=== PATIENT | male | born 1950 | race Caucasian/White ===

== ENCOUNTER 2017-02-15 08:12 | Emergency (ER) | payer MEDICARE, OTHER ==
[~2017-02-15] VITALS: Ht 193 cm; Wt 90.4 kg
[2017-02-15] MEDS ORDERED: GABA-531 PO (08:27)
[2017-02-15] MEDS ORDERED: ATEN50TA PO (08:27)
[2017-02-15] MEDS ORDERED: SODIUM CHLORIDE 0.9% 1,000 ML IV ONE (08:34)
[2017-02-15] MEDS ORDERED: MORPHINE SULFATE 4 MG/ML SYRINGE IVP ONE (08:45)
[2017-02-15] MEDS ORDERED: ONDANSETRON HCL 4 MG/2 ML VIAL IVP ONE (08:45)
[2017-02-15] MEDS ORDERED: HydrALAZINE HCL 20 MG/ML VIAL IVP ONE (08:45)
[2017-02-15 09:02] LABS: BASOPHILS % (AUTO) 0.3 % (0.0-2.0); EOSINOPHILS % (AUTO) 0 % (1.0-6.0); HEMATOCRIT 41.2 % (41-53); HEMOGLOBIN 14.4 g/dL (13.5-17.5); LYMPHOCYTES # (AUTO) 0.9 K/uL (1.0-4.8); LYMPHOCYTES % (AUTO) 25.4 % (22.0-44.0); MEAN CORPUSCULAR HEMOGLOBIN 31.1 pg (26.0-34.0); MEAN CORPUSCULAR VOLUME 89 fL (80-100); MONOCYTES # (AUTO) 0.3 K/uL (0.1-1.0); MONOCYTES % (AUTO) 10.4 % (2.0-9.0); NEUTROPHILS # (AUTO) 2.2 K/uL (1.8-7.7); NEUTROPHILS % (AUTO) 63.9 % (40.0-70.0); PLATELET COUNT (AUTO) 114 K/uL (150-450); RED BLOOD CELL COUNT(AUTO) 4.64 MIL/uL (4.50-5.90); RED CELL DISTRIBUTION WIDTH 14.1 % (11.5-14.5); WHITE BLOOD COUNT (AUTO) 3.4 K/uL (4.5-11.0)
[2017-02-15 09:14] LABS: APPEARANCE,URINE CLEAR (CLEAR); GLUCOSE, URINE (UA) NEGATIVE (NEGATIVE); KETONES,URINE NEGATIVE (NEGATIVE); LEUKOCYTE ESTERASE ,URINE NEGATIVE (NEGATIVE); OCCULT BLOOD,URINE NEGATIVE (NEGATIVE); PROTEIN,URINE NEGATIVE (NEGATIVE)
[2017-02-15 09:15] LABS: ANION GAP 7 mmol/L (8-16); CARBON DIOXIDE 30 mmol/L (22-29); CHLORIDE 104 mmol/L (98-107); CREATININE 1.12 mg/dL (0.60-1.30); GLOMERULAR FILTR. RATE CALC > 60 mL/min (>60); POTASSIUM 3.6 mmol/L (3.5-5.1); SODIUM SERUM 141 mmol/L (136-145); UREA NITROGEN, BLOOD 20 mg/dL (7-18)
[2017-02-15 09:19] LABS: ADD UA MICROSCOPIC NO
[2017-02-15 09:20] LABS: ALANINE AMINOTRANSFERASE 89 U/L (12-78); ALBUMIN 3.8 g/dL (3.4-5.0); ASPARTATE AMINOTRANSFERASE 54 U/L (15-37); BILIRUBIN,TOTAL 0.7 mg/dL (0.1-1.0); TOTAL PROTEIN, SERUM 7.8 g/dL (6.4-8.2)
[2017-02-15] MEDS ORDERED: ATENOLOL 50 MG TABLET PO ONE (11:15)
[2017-02-15 12:20] VITALS: BP 135/87
[2017-02-16] MEDS ORDERED: OMEG-135 PO (17:28)
== END 2017-02-15 13:01 | disposition home or self-care (01) ==
LOC: EMS 08:13
DX: K85.90 Acute pancreatitis without necrosis or infection, unspecified (principal); K80.20 Calculus of gallbladder without cholecystitis without obstruction; I10 Essential (primary) hypertension; F17.210 Nicotine dependence, cigarettes, uncomplicated; Z88.5 Allergy status to narcotic agent
CPT/HCPCS: 36415; 76705; 80053; 81003; 83690; 85025; 96374; 96375; 99285; J0360; J2270; J2405; J7030

== ENCOUNTER 2017-02-16 17:15 | Emergency (ER) | payer MEDICARE, OTHER ==
[~2017-02-16] VITALS: Ht 193 cm; Wt 88.6 kg
[~2017-02-16 17:15] MED LIST: ATEN50TA PO; GABA-531 PO
[2017-02-16] MEDS ORDERED: OMEG-135 PO (17:28)
[2017-02-16 17:51] LABS: APPEARANCE,URINE CLEAR (CLEAR); GLUCOSE, URINE (UA) NEGATIVE (NEGATIVE); KETONES,URINE NEGATIVE (NEGATIVE); LEUKOCYTE ESTERASE ,URINE NEGATIVE (NEGATIVE); OCCULT BLOOD,URINE NEGATIVE (NEGATIVE); PH,URINE 5.5 (5.0-8.0); PROTEIN,URINE TRACE (NEGATIVE)
[2017-02-16 17:56] LABS: ADD UA MICROSCOPIC YES
[2017-02-16 17:57] LABS: RBC,URINE None Seen /HPF (0-2); WBC,URINE None Seen /HPF (0-5)
[2017-02-16 18:46] VITALS: BP 134/107
== END 2017-02-16 18:58 | disposition home or self-care (01) ==
LOC: EMS 17:17
DX: R82.2 Biliuria (principal); R31.9 Hematuria, unspecified; R30.0 Dysuria; I10 Essential (primary) hypertension; F17.210 Nicotine dependence, cigarettes, uncomplicated; Z88.5 Allergy status to narcotic agent
CPT/HCPCS: 99283

== ENCOUNTER 2017-03-24 15:16 | Emergency (ER) | payer MEDICARE, OTHER ==
[~2017-03-24] VITALS: Ht 185.4 cm; Wt 91.8 kg
[~2017-03-24 15:16] MED LIST changes: -ATEN50TA PO; +OMEG-135 PO
[2017-03-24] MEDS ORDERED: ATEN50TA PO (15:33)
[2017-03-24] MEDS ORDERED: OLAN10TA3 PO (15:33)
[2017-03-24] MEDS ORDERED: AMLO-512 PO (15:33)
[2017-03-24 16:29] LABS: BASOPHILS % (AUTO) 0.4 % (0.0-2.0); EOSINOPHILS % (AUTO) 0.1 % (1.0-6.0); HEMOGLOBIN 12.5 g/dL (13.5-17.5); MEAN CORPUSCULAR HEMOGLOBIN 30.3 pg (26.0-34.0); MEAN CORPUSCULAR HGB CONC 34.7 G/dL (31.0-37.0); MEAN CORPUSCULAR VOLUME 87 fL (80-100); MONOCYTES # (AUTO) 0.5 K/uL (0.1-1.0); MONOCYTES % (AUTO) 9.9 % (2.0-9.0); NEUTROPHILS # (AUTO) 3.4 K/uL (1.8-7.7); NEUTROPHILS % (AUTO) 69.6 % (40.0-70.0); PLATELET COUNT (AUTO) 109 K/uL (150-450); RED BLOOD CELL COUNT(AUTO) 4.13 MIL/uL (4.50-5.90); RED CELL DISTRIBUTION WIDTH 13.8 % (11.5-14.5)
[2017-03-24 16:45] LABS: ANION GAP 7 mmol/L (8-16); CALCIUM, TOTAL 8.6 mg/dL (8.8-10.5); CARBON DIOXIDE 27 mmol/L (22-29); CHLORIDE 100 mmol/L (98-107); CREATININE 1.42 mg/dL (0.60-1.30); GLOMERULAR FILTR. RATE CALC 50 mL/min (>60); GLUCOSE,RANDOM 99 mg/dL (70-110); POTASSIUM 4.8 mmol/L (3.5-5.1); SODIUM SERUM 134 mmol/L (136-145); UREA NITROGEN, BLOOD 32 mg/dL (7-18)
[2017-03-24] MEDS ORDERED: SODIUM CHLORIDE 0.9% 1,000 ML IV ONE (16:45)
[2017-03-24 16:51] LABS: ALANINE AMINOTRANSFERASE 80 U/L (12-78); ALBUMIN 3.4 g/dL (3.4-5.0); ALKALINE PHOSPHATASE 100 U/L (46-116); ASPARTATE AMINOTRANSFERASE 60 U/L (15-37); BILIRUBIN,TOTAL 0.7 mg/dL (0.1-1.0); TOTAL PROTEIN, SERUM 7.1 g/dL (6.4-8.2)
[2017-03-24 17:04] VITALS: BP 122/75
== END 2017-03-24 18:08 | disposition home or self-care (01) ==
LOC: EMS 15:20
DX: R42 Dizziness and giddiness (principal); N28.9 Disorder of kidney and ureter, unspecified; I10 Essential (primary) hypertension; F17.210 Nicotine dependence, cigarettes, uncomplicated; Z88.5 Allergy status to narcotic agent
CPT/HCPCS: 36415; 71045; 80053; 84484; 85025; 93005; 96360; 99285; G0480; J7030

== ENCOUNTER 2017-04-10 23:43 | Emergency (ER) | payer MEDICARE, OTHER ==
[~2017-04-10] VITALS: Ht 185.4 cm; Wt 93.2 kg
[~2017-04-10 23:43] MED LIST changes: +AMLO-512 PO; +ATEN50TA PO; +OLAN10TA3 PO; -OMEG-135 PO
[2017-04-11] MEDS ORDERED: LORazepam 2 MG TABLET PO ONE (01:30)
[2017-04-11] MEDS ORDERED: QUEtiapine FUMARATE 100 MG TABLET PO ONE (01:30)
[2017-04-11 01:56] VITALS: BP 155/91
== END 2017-04-11 02:00 | disposition home or self-care (01) ==
LOC: EMS 23:45
DX: F20.9 Schizophrenia, unspecified (principal); I10 Essential (primary) hypertension; Z88.5 Allergy status to narcotic agent; F17.210 Nicotine dependence, cigarettes, uncomplicated
CPT/HCPCS: 99284

== ENCOUNTER 2017-04-12 19:18 | Inpatient (IN) | payer MEDICARE, MEDICAID ==
[~2017-04-12] VITALS: Ht 185.4 cm; Wt 96.6 kg
[2017-04-12] MEDS ORDERED: HALOPERIDOL 5 MG TABLET PO PRN (20:30)
[2017-04-12] MEDS ORDERED: PNEUMOCOCCAL VACCINE POLYVALENT 0.5 ML VIAL [PPSV23] IM ONE (20:45)
[2017-04-12 21:23] VITALS: BP 134/79
[2017-04-12] MEDS: ZOLPIDEM TARTRATE 10 MG TABLET PO PRN (21:41)
[2017-04-12] MEDS ORDERED: ACETAMINOPHEN 325 MG TABLET PO PRN (22:00)
[2017-04-12] MEDS ORDERED: IBUPROFEN 600 MG TABLET PO PRN (22:00)
[2017-04-13 06:36] VITALS: BP 149/98
[2017-04-13 08:05] VITALS: BP 139/85
[2017-04-13 08:22] LABS: BASOPHILS % (AUTO) 0.5 % (0.0-2.0); EOSINOPHILS % (AUTO) 0 % (1.0-6.0); HEMATOCRIT 37.3 % (41-53); HEMOGLOBIN 12.8 g/dL (13.5-17.5); LYMPHOCYTES # (AUTO) 0.8 K/uL (1.0-4.8); LYMPHOCYTES % (AUTO) 25.3 % (22.0-44.0); MEAN CORPUSCULAR HEMOGLOBIN 29.5 pg (26.0-34.0); MEAN CORPUSCULAR HGB CONC 34.4 G/dL (31.0-37.0); MEAN CORPUSCULAR VOLUME 86 fL (80-100); MONOCYTES # (AUTO) 0.4 K/uL (0.1-1.0); MONOCYTES % (AUTO) 11.6 % (2.0-9.0); NEUTROPHILS # (AUTO) 2.1 K/uL (1.8-7.7); NEUTROPHILS % (AUTO) 62.6 % (40.0-70.0); PLATELET COUNT (AUTO) 132 K/uL (150-450); RED BLOOD CELL COUNT(AUTO) 4.34 MIL/uL (4.50-5.90); RED CELL DISTRIBUTION WIDTH 14.4 % (11.5-14.5)
[2017-04-13 08:45] LABS: HEMOGLOBIN A1C 5.5 % (4.5-6.2)
[2017-04-13 08:47] LABS: ALBUMIN 3.6 g/dL (3.4-5.0); BILIRUBIN,TOTAL 0.5 mg/dL (0.1-1.0); CALCIUM, TOTAL 8.7 mg/dL (8.8-10.5); CREATININE 1.26 mg/dL (0.60-1.30); TOTAL PROTEIN, SERUM 7.6 g/dL (6.4-8.2)
[2017-04-13] MEDS: GABAPENTIN 300 MG CAPSULE PO SCH ×2 (08:53→17:27)
[2017-04-13] MEDS: AmLODIPine BESYLATE 10 MG TABLET PO SCH (08:53)
[2017-04-13] MEDS: ATENOLOL 50 MG TABLET PO SCH (08:54)
[2017-04-13 09:59] LABS: FREE T4 (FREE THYROXINE) 1.01 ng/dL (0.76-1.46); THYROID STIMULATING HORMONE 1.49 uIU/mL (0.36-3.74)
[2017-04-13 10:27] VITALS: BP 142/88
[2017-04-13 11:30] VITALS: BP 143/84
[2017-04-13 16:00] VITALS: BP 144/88
[2017-04-13] MEDS: LORazepam 2 MG TABLET PO PRN (17:27)
[2017-04-13] MEDS: ZOLPIDEM TARTRATE 10 MG TABLET PO PRN (21:11)
[2017-04-13] MEDS: OLANZapine 10 MG TABLET PO SCH (21:11)
[2017-04-14 02:54] VITALS: BP 148/93
[2017-04-14 08:12] VITALS: BP 132/71
[2017-04-14] MEDS: GABAPENTIN 300 MG CAPSULE PO SCH ×2 (08:28→16:36)
[2017-04-14] MEDS: ATENOLOL 50 MG TABLET PO SCH (08:28)
[2017-04-14] MEDS: AmLODIPine BESYLATE 10 MG TABLET PO SCH (08:28)
[2017-04-14 08:37] LABS: AMPHET/METH SCREEN,URINE NEGATIVE (NEGATIVE); BARBITURATE SCREEN, URINE NEGATIVE (NEGATIVE); BENZODIAZEPINES SCREEN,URINE NEGATIVE (NEGATIVE); CANNABINOID SCREEN,URINE NEGATIVE (NEGATIVE); COCAINE SCREEN,URINE NEGATIVE (NEGATIVE); METHADONE SCREEN, URINE NEGATIVE (NEGATIVE); OPIATE SCREEN,URINE NEGATIVE (NEGATIVE)
[2017-04-14 08:39] LABS: PHENCYCLIDINE SCREEN,URINE NEGATIVE (NEGATIVE)
[2017-04-14 09:01] LABS: APPEARANCE,URINE CLEAR (CLEAR); BILIRUBIN,URINE NEGATIVE (NEGATIVE); GLUCOSE, URINE (UA) NEGATIVE (NEGATIVE); KETONES,URINE NEGATIVE (NEGATIVE); LEUKOCYTE ESTERASE ,URINE NEGATIVE (NEGATIVE); NITRATE,URINE NEGATIVE (NEGATIVE); OCCULT BLOOD,URINE NEGATIVE (NEGATIVE); PROTEIN,URINE NEGATIVE (NEGATIVE)
[2017-04-14] MEDS: LORazepam 2 MG TABLET PO PRN ×3 (12:35→23:44)
[2017-04-14 16:22] VITALS: BP 154/76
[2017-04-14] MEDS: OLANZapine 10 MG TABLET PO SCH (20:22)
[2017-04-14] MEDS: ZOLPIDEM TARTRATE 10 MG TABLET PO PRN (21:12)
[2017-04-15] VITALS (10 sets, daily range): BP systolic 131–156; BP diastolic 75–97
[2017-04-15] MEDS: GABAPENTIN 300 MG CAPSULE PO SCH ×2 (08:57→17:23)
[2017-04-15] MEDS: ATENOLOL 50 MG TABLET PO SCH (08:57)
[2017-04-15] MEDS: AmLODIPine BESYLATE 10 MG TABLET PO SCH (08:58)
[2017-04-15] MEDS: OLANZapine 10 MG TABLET PO SCH (20:42)
[2017-04-15] MEDS: NYSTATIN 30 GM CREAM TP SCH (21:44)
[2017-04-15] MEDS: MAGNESIUM SULFATE 454 GM BOX TP SCH (21:44)
[2017-04-16] MEDS: ZOLPIDEM TARTRATE 10 MG TABLET PO PRN ×2 (01:19→20:28)
[2017-04-16 01:34] VITALS: BP 138/90
[2017-04-16 08:07] VITALS: BP 154/87
[2017-04-16] MEDS: MAGNESIUM SULFATE 454 GM BOX TP SCH ×2 (08:31→16:57)
[2017-04-16] MEDS: GABAPENTIN 300 MG CAPSULE PO SCH ×2 (08:31→16:57)
[2017-04-16] MEDS: AmLODIPine BESYLATE 10 MG TABLET PO SCH (08:31)
[2017-04-16] MEDS: LORazepam 2 MG TABLET PO PRN (08:31)
[2017-04-16] MEDS: ATENOLOL 50 MG TABLET PO SCH (08:32)
[2017-04-16] MEDS: NYSTATIN 30 GM CREAM TP SCH (08:33)
[2017-04-16 12:45] VITALS: BP_SYST 142; BP_SYST 149; BP_DIAS 72
[2017-04-16 13:00] VITALS: BP 102/82
[2017-04-16 16:00] VITALS: BP 131/62
[2017-04-16] MEDS: OLANZapine 10 MG TABLET PO SCH (20:27)
[2017-04-16] MEDS ORDERED: OXYBUTYNIN CHLORIDE 5 MG TABLET PO SCH (21:00)
[2017-04-17 05:50] VITALS: BP 142/90
[2017-04-17 08:09] VITALS: BP 136/84
[2017-04-17] MEDS: MAGNESIUM SULFATE 454 GM BOX TP SCH (08:17)
[2017-04-17] MEDS: ATENOLOL 50 MG TABLET PO SCH (08:17)
[2017-04-17] MEDS: AmLODIPine BESYLATE 10 MG TABLET PO SCH (08:17)
[2017-04-17] MEDS: GABAPENTIN 300 MG CAPSULE PO SCH (08:17)
[2017-04-17] MEDS: NYSTATIN 30 GM CREAM TP SCH (08:18)
[2017-04-17] MEDS ORDERED: OXYB5 PO (08:54)
== END 2017-04-17 08:45 | disposition home or self-care (01) | DRG 750 ==
LOC: B3A 20:20
PROC: 3E0234Z Introduction of Serum, Toxoid and Vaccine into Muscle, Percutaneous Approach (ICD-10-PCS; principal; 2017-04-12)
DX: F20.0 Paranoid schizophrenia (principal); G62.9 Polyneuropathy, unspecified; I10 Essential (primary) hypertension; B19.20 Unspecified viral hepatitis C without hepatic coma; F31.9 Bipolar disorder, unspecified; F29 Unspecified psychosis not due to a substance or known physiological condition; Z88.5 Allergy status to narcotic agent; Z79.899 Other long term (current) drug therapy; Z23 Encounter for immunization
CPT/HCPCS: 80307; 83036; 84439; 84443; 90471

== ENCOUNTER 2017-04-27 18:34 | Emergency (ER) | payer MEDICARE, MEDICAID ==
[~2017-04-27] VITALS: Ht 182.9 cm; Wt 90.0 kg
[~2017-04-27 18:34] MED LIST changes: +OXYB5 PO
[2017-04-27 20:06] LABS: APPEARANCE,URINE CLEAR (CLEAR); BILIRUBIN,URINE NEGATIVE (NEGATIVE); GLUCOSE, URINE (UA) NEGATIVE (NEGATIVE); KETONES,URINE NEGATIVE (NEGATIVE); LEUKOCYTE ESTERASE ,URINE NEGATIVE (NEGATIVE); NITRATE,URINE NEGATIVE (NEGATIVE); OCCULT BLOOD,URINE NEGATIVE (NEGATIVE); PROTEIN,URINE NEGATIVE (NEGATIVE)
[2017-04-27 20:06] LABS: BASOPHILS % (AUTO) 0.7 % (0.0-2.0); EOSINOPHILS % (AUTO) 0.1 % (1.0-6.0); HEMATOCRIT 35.7 % (41-53); HEMOGLOBIN 12.4 g/dL (13.5-17.5); LYMPHOCYTES % (AUTO) 24.1 % (22.0-44.0); MEAN CORPUSCULAR HEMOGLOBIN 29.6 pg (26.0-34.0); MEAN CORPUSCULAR HGB CONC 34.8 G/dL (31.0-37.0); MEAN CORPUSCULAR VOLUME 85 fL (80-100); MONOCYTES # (AUTO) 0.4 K/uL (0.1-1.0); NEUTROPHILS # (AUTO) 2.6 K/uL (1.8-7.7); NEUTROPHILS % (AUTO) 64.1 % (40.0-70.0); PLATELET COUNT (AUTO) 141 K/uL (150-450); RED CELL DISTRIBUTION WIDTH 14.5 % (11.5-14.5)
[2017-04-27 20:26] LABS: ANION GAP 7 mmol/L (8-16); CALCIUM, TOTAL 9.1 mg/dL (8.8-10.5); CARBON DIOXIDE 29 mmol/L (22-29); CHLORIDE 106 mmol/L (98-107); CREATININE 1.17 mg/dL (0.60-1.30); GLOMERULAR FILTR. RATE CALC > 60 mL/min (>60); GLUCOSE,RANDOM 95 mg/dL (70-110); POTASSIUM 4.1 mmol/L (3.5-5.1); SODIUM SERUM 142 mmol/L (136-145); UREA NITROGEN, BLOOD 19 mg/dL (7-18)
[2017-04-27 20:33] LABS: ALANINE AMINOTRANSFERASE 92 U/L (12-78); ALBUMIN 3.7 g/dL (3.4-5.0); ALKALINE PHOSPHATASE 120 U/L (46-116); ASPARTATE AMINOTRANSFERASE 69 U/L (15-37); BILIRUBIN,TOTAL 0.6 mg/dL (0.1-1.0); TOTAL PROTEIN, SERUM 7.5 g/dL (6.4-8.2)
[2017-04-27 20:39] LABS: BACTERIA,URINE None Seen /HPF (None Seen); RBC,URINE None Seen /HPF (0-2); WBC,URINE None Seen /HPF (0-5)
[2017-04-27 20:40] LABS: SQUAMOUS EPITHELIAL CELL,UR None Seen /LPF (None Seen)
[2017-04-27 21:14] LABS: B-TYPE NATRIURETIC PEPTIDE 15 pg/mL (0-100)
[2017-04-27 21:53] VITALS: BP 150/76
== END 2017-04-27 22:00 | disposition home or self-care (01) ==
LOC: EMS 18:36
DX: M71.561 Other bursitis, not elsewhere classified, right knee (principal); M17.11 Unilateral primary osteoarthritis, right knee; R74.0 Nonspecific elevation of levels of transaminase and lactic acid dehydrogenase [LDH]; L03.115 Cellulitis of right lower limb; F31.9 Bipolar disorder, unspecified; G62.9 Polyneuropathy, unspecified; I10 Essential (primary) hypertension; F17.210 Nicotine dependence, cigarettes, uncomplicated; Z88.5 Allergy status to narcotic agent; W10.1XXA Fall (on)(from) sidewalk curb, initial encounter; Y93.89 Activity, other specified; Y92.89 Other specified places as the place of occurrence of the external cause; Y99.8 Other external cause status
CPT/HCPCS: 93970; 99285

== ENCOUNTER 2017-06-13 12:50 | Inpatient (IN) | payer MEDICARE, MEDICAID ==
[~2017-06-13] VITALS: Ht 185.4 cm; Wt 91.2 kg
[2017-06-13 13:03] VITALS: BP 110/65
[2017-06-13] MEDS ORDERED: ZOLPIDEM TARTRATE 10 MG TABLET PO PRN (13:30)
[2017-06-13] MEDS ORDERED: HALOPERIDOL 5 MG TABLET PO PRN (13:30)
[2017-06-13] MEDS ORDERED: PNEUMOCOCCAL VACCINE POLYVALENT 0.5 ML VIAL [PPSV23] IM ONE (14:00)
[2017-06-13] MEDS ORDERED: TRAZ-144 PO (14:28)
[2017-06-13] MEDS ORDERED: OLAN5TAB2 PO (14:28)
[2017-06-13] MEDS ORDERED: OLAN10TA3 PO (14:28)
[2017-06-13 18:45] VITALS: BP 140/80
[2017-06-13] MEDS: GABAPENTIN 300 MG CAPSULE PO SCH (20:01)
[2017-06-13] MEDS: TraZODone HCL 50 MG TABLET PO SCH (20:02)
[2017-06-13] MEDS: OLANZapine 10 MG TABLET PO SCH (20:02)
[2017-06-13 20:56] VITALS: BP 140/85
[2017-06-13] MEDS: OXYBUTYNIN CHLORIDE 5 MG TABLET PO SCH (21:33)
[2017-06-14 02:29] VITALS: BP 117/60
[2017-06-14 08:31] VITALS: BP 150/81
[2017-06-14 08:53] LABS: BASOPHILS % (AUTO) 0.3 % (0.0-2.0); EOSINOPHILS % (AUTO) 0 % (1.0-6.0); HEMOGLOBIN 13.2 g/dL (13.5-17.5); LYMPHOCYTES # (AUTO) 0.9 K/uL (1.0-4.8); LYMPHOCYTES % (AUTO) 19.9 % (22.0-44.0); MEAN CORPUSCULAR HEMOGLOBIN 29.6 pg (26.0-34.0); MEAN CORPUSCULAR HGB CONC 34.8 G/dL (31.0-37.0); MEAN CORPUSCULAR VOLUME 85 fL (80-100); MONOCYTES # (AUTO) 0.3 K/uL (0.1-1.0); MONOCYTES % (AUTO) 6.9 % (2.0-9.0); NEUTROPHILS # (AUTO) 3.3 K/uL (1.8-7.7); NEUTROPHILS % (AUTO) 72.9 % (40.0-70.0); PLATELET COUNT (AUTO) 130 K/uL (150-450); RED BLOOD CELL COUNT(AUTO) 4.46 MIL/uL (4.50-5.90); RED CELL DISTRIBUTION WIDTH 14.5 % (11.5-14.5)
[2017-06-14] MEDS: ATENOLOL 50 MG TABLET PO SCH (09:12)
[2017-06-14] MEDS: GABAPENTIN 300 MG CAPSULE PO SCH ×2 (09:13→16:49)
[2017-06-14] MEDS: OLANZapine 5 MG TABLET PO SCH (09:13)
[2017-06-14] MEDS: AmLODIPine BESYLATE 10 MG TABLET PO SCH (09:13)
[2017-06-14 09:30] LABS: HEMOGLOBIN A1C 5.4 % (4.5-6.2)
[2017-06-14 09:32] LABS: ALANINE AMINOTRANSFERASE 97 U/L (12-78); ALBUMIN 3.6 g/dL (3.4-5.0); ALKALINE PHOSPHATASE 108 U/L (46-116); ANION GAP 5 mmol/L (8-16); ASPARTATE AMINOTRANSFERASE 75 U/L (15-37); BILIRUBIN,TOTAL 0.6 mg/dL (0.1-1.0); CALCIUM, TOTAL 8.9 mg/dL (8.8-10.5); CARBON DIOXIDE 31 mmol/L (22-29); CHLORIDE 105 mmol/L (98-107); CHOL/HDL RATIO 3.7 (4.2-7.3); CHOLESTEROL 123 mg/dL (131-200); CREATININE 1.06 mg/dL (0.60-1.30); FREE T4 (FREE THYROXINE) 1.08 ng/dL (0.76-1.46); GLOMERULAR FILTR. RATE CALC > 60 mL/min (>60); GLUCOSE,RANDOM 126 mg/dL (70-110); HDL CHOLESTEROL 33 mg/dL (40-60); LDL CHOL (CALC.) 77 mg/dL (0-130); POTASSIUM 4.1 mmol/L (3.5-5.1); SODIUM SERUM 141 mmol/L (136-145); THYROID STIMULATING HORMONE 1.24 uIU/mL (0.36-3.74); TOTAL PROTEIN, SERUM 7.7 g/dL (6.4-8.2); TRIGLYCERIDES 64 mg/dL (15-150); UREA NITROGEN, BLOOD 30 mg/dL (7-18)
[2017-06-14 16:07] VITALS: BP 139/87
[2017-06-14] MEDS: LORazepam 2 MG TABLET PO PRN (16:49)
[2017-06-14] MEDS: TraZODone HCL 50 MG TABLET PO SCH (20:40)
[2017-06-14] MEDS: OLANZapine 10 MG TABLET PO SCH (20:40)
[2017-06-14] MEDS: OXYBUTYNIN CHLORIDE 5 MG TABLET PO SCH (20:40)
[2017-06-15 04:34] VITALS: BP 142/75
[2017-06-15 08:05] VITALS: BP 118/83
[2017-06-15] MEDS: AmLODIPine BESYLATE 10 MG TABLET PO SCH (08:45)
[2017-06-15] MEDS: ATENOLOL 50 MG TABLET PO SCH (08:45)
[2017-06-15] MEDS: OLANZapine 5 MG TABLET PO SCH (08:45)
[2017-06-15] MEDS: GABAPENTIN 300 MG CAPSULE PO SCH ×2 (08:45→16:20)
[2017-06-15 16:05] VITALS: BP 136/85
[2017-06-15] MEDS: LORazepam 2 MG TABLET PO PRN (16:20)
[2017-06-15] MEDS: OXYBUTYNIN CHLORIDE 5 MG TABLET PO SCH (20:38)
[2017-06-15] MEDS: OLANZapine 10 MG TABLET PO SCH (20:38)
[2017-06-15] MEDS: TraZODone HCL 50 MG TABLET PO SCH (20:38)
[2017-06-16 05:43] VITALS: BP 133/86
[2017-06-16] MEDS: ATENOLOL 50 MG TABLET PO SCH (08:15)
[2017-06-16] MEDS: OLANZapine 5 MG TABLET PO SCH (08:15)
[2017-06-16] MEDS: AmLODIPine BESYLATE 10 MG TABLET PO SCH (08:15)
[2017-06-16] MEDS: GABAPENTIN 300 MG CAPSULE PO SCH ×2 (08:16→16:34)
[2017-06-16 08:28] VITALS: BP 154/91
[2017-06-16] MEDS: DIVALPROEX SODIUM 500 MG DR TABLET PO SCH ×2 (09:24→20:37)
[2017-06-16 16:03] VITALS: BP 147/70
[2017-06-16] MEDS: LORazepam 2 MG TABLET PO PRN (16:35)
[2017-06-16] MEDS: TraZODone HCL 50 MG TABLET PO SCH (20:36)
[2017-06-16] MEDS: OXYBUTYNIN CHLORIDE 5 MG TABLET PO SCH (20:36)
[2017-06-16] MEDS: OLANZapine 10 MG TABLET PO SCH (20:37)
[2017-06-17 05:16] VITALS: BP 142/88
[2017-06-17 08:04] VITALS: BP 136/80
[2017-06-17] MEDS: AmLODIPine BESYLATE 10 MG TABLET PO SCH (08:22)
[2017-06-17] MEDS: OLANZapine 5 MG TABLET PO SCH (08:22)
[2017-06-17] MEDS: DIVALPROEX SODIUM 500 MG DR TABLET PO SCH ×2 (08:22→20:38)
[2017-06-17] MEDS: GABAPENTIN 300 MG CAPSULE PO SCH ×2 (08:22→16:13)
[2017-06-17] MEDS: ATENOLOL 50 MG TABLET PO SCH (08:22)
[2017-06-17 16:11] VITALS: BP 115/68
[2017-06-17] MEDS: LORazepam 2 MG TABLET PO PRN (16:13)
[2017-06-17] MEDS: VITAMINS A & D 60 GM OINTMENT TP SCH (16:13)
[2017-06-17] MEDS: OXYBUTYNIN CHLORIDE 5 MG TABLET PO SCH (20:38)
[2017-06-17] MEDS: TraZODone HCL 50 MG TABLET PO SCH (20:38)
[2017-06-17] MEDS: OLANZapine 10 MG TABLET PO SCH (20:38)
[2017-06-18 01:59] VITALS: BP 121/83
[2017-06-18] MEDS: OLANZapine 5 MG TABLET PO SCH (08:16)
[2017-06-18] MEDS: DIVALPROEX SODIUM 500 MG DR TABLET PO SCH ×2 (08:16→20:24)
[2017-06-18] MEDS: AmLODIPine BESYLATE 10 MG TABLET PO SCH (08:16)
[2017-06-18] MEDS: GABAPENTIN 300 MG CAPSULE PO SCH ×2 (08:16→17:06)
[2017-06-18] MEDS: ATENOLOL 50 MG TABLET PO SCH (08:16)
[2017-06-18] MEDS: VITAMINS A & D 60 GM OINTMENT TP SCH ×2 (08:17→17:06)
[2017-06-18 08:23] VITALS: BP 144/90
[2017-06-18 16:12] VITALS: BP 134/89
[2017-06-18] MEDS: LORazepam 2 MG TABLET PO PRN (17:06)
[2017-06-18] MEDS: OXYBUTYNIN CHLORIDE 5 MG TABLET PO SCH (20:24)
[2017-06-18] MEDS: OLANZapine 10 MG TABLET PO SCH (20:24)
[2017-06-18] MEDS: TraZODone HCL 50 MG TABLET PO SCH (20:24)
[2017-06-19 04:38] VITALS: BP 140/93
[2017-06-19 08:12] VITALS: BP 137/91
[2017-06-19] MEDS: OLANZapine 5 MG TABLET PO SCH (08:38)
[2017-06-19] MEDS: DIVALPROEX SODIUM 500 MG DR TABLET PO SCH ×2 (08:38→20:48)
[2017-06-19] MEDS: ATENOLOL 50 MG TABLET PO SCH (08:38)
[2017-06-19] MEDS: AmLODIPine BESYLATE 10 MG TABLET PO SCH (08:38)
[2017-06-19] MEDS: GABAPENTIN 300 MG CAPSULE PO SCH ×2 (08:38→16:52)
[2017-06-19] MEDS: VITAMINS A & D 60 GM OINTMENT TP SCH ×2 (08:39→16:52)
[2017-06-19 16:05] VITALS: BP 124/70
[2017-06-19] MEDS: LORazepam 2 MG TABLET PO PRN (16:53)
[2017-06-19] MEDS: OXYBUTYNIN CHLORIDE 5 MG TABLET PO SCH (20:47)
[2017-06-19] MEDS: OLANZapine 10 MG TABLET PO SCH (20:47)
[2017-06-19] MEDS: TraZODone HCL 50 MG TABLET PO SCH (20:47)
[2017-06-20 05:58] VITALS: BP 130/88
[2017-06-20 08:06] VITALS: BP 143/61
[2017-06-20] MEDS: AmLODIPine BESYLATE 10 MG TABLET PO SCH (08:56)
[2017-06-20] MEDS: ATENOLOL 50 MG TABLET PO SCH (08:56)
[2017-06-20] MEDS: DIVALPROEX SODIUM 500 MG DR TABLET PO SCH ×2 (08:56→20:02)
[2017-06-20] MEDS: GABAPENTIN 300 MG CAPSULE PO SCH ×2 (08:56→16:30)
[2017-06-20] MEDS: OLANZapine 5 MG TABLET PO SCH (08:57)
[2017-06-20] MEDS: VITAMINS A & D 60 GM OINTMENT TP SCH ×2 (08:57→16:30)
[2017-06-20 16:05] VITALS: BP 112/71
[2017-06-20] MEDS: OXYBUTYNIN CHLORIDE 5 MG TABLET PO SCH (20:02)
[2017-06-20] MEDS: TraZODone HCL 50 MG TABLET PO SCH (20:02)
[2017-06-20] MEDS: OLANZapine 10 MG TABLET PO SCH (20:02)
[2017-06-21 04:24] VITALS: BP 136/66
[2017-06-21 08:05] VITALS: BP 141/87
[2017-06-21] MEDS: ATENOLOL 50 MG TABLET PO SCH (08:50)
[2017-06-21] MEDS: GABAPENTIN 300 MG CAPSULE PO SCH ×2 (08:50→16:36)
[2017-06-21] MEDS: AmLODIPine BESYLATE 10 MG TABLET PO SCH (08:50)
[2017-06-21] MEDS: DIVALPROEX SODIUM 500 MG DR TABLET PO SCH ×2 (08:50→20:32)
[2017-06-21] MEDS: OLANZapine 5 MG TABLET PO SCH (08:50)
[2017-06-21] MEDS: VITAMINS A & D 60 GM OINTMENT TP SCH ×2 (08:51→16:36)
[2017-06-21] MEDS ORDERED: DENTURE ADHESIVE 68 GM CREAM DT PRN (14:00)
[2017-06-21 16:05] VITALS: BP 138/86
[2017-06-21] MEDS: LORazepam 2 MG TABLET PO PRN (16:36)
[2017-06-21] MEDS: OXYBUTYNIN CHLORIDE 5 MG TABLET PO SCH (20:32)
[2017-06-21] MEDS: OLANZapine 10 MG TABLET PO SCH (20:32)
[2017-06-21] MEDS: TraZODone HCL 50 MG TABLET PO SCH (20:33)
[2017-06-22 00:28] VITALS: BP 144/88
[2017-06-22 08:04] VITALS: BP 139/77
[2017-06-22] MEDS: GABAPENTIN 300 MG CAPSULE PO SCH ×2 (08:21→16:17)
[2017-06-22] MEDS: AmLODIPine BESYLATE 10 MG TABLET PO SCH (08:21)
[2017-06-22] MEDS: ATENOLOL 50 MG TABLET PO SCH (08:21)
[2017-06-22] MEDS: OLANZapine 5 MG TABLET PO SCH (08:21)
[2017-06-22] MEDS: DIVALPROEX SODIUM 500 MG DR TABLET PO SCH ×2 (08:21→20:02)
[2017-06-22] MEDS: VITAMINS A & D 60 GM OINTMENT TP SCH ×2 (08:22→16:17)
[2017-06-22 16:05] VITALS: BP 138/66
[2017-06-22] MEDS: LORazepam 2 MG TABLET PO PRN (16:17)
[2017-06-22] MEDS: TraZODone HCL 50 MG TABLET PO SCH (20:02)
[2017-06-22] MEDS: OXYBUTYNIN CHLORIDE 5 MG TABLET PO SCH (20:02)
[2017-06-22] MEDS: OLANZapine 10 MG TABLET PO SCH (20:02)
[2017-06-23 01:12] VITALS: BP 135/88
[2017-06-23 08:07] VITALS: BP 141/71
[2017-06-23] MEDS: GABAPENTIN 300 MG CAPSULE PO SCH ×2 (08:24→17:02)
[2017-06-23] MEDS: OLANZapine 5 MG TABLET PO SCH (08:25)
[2017-06-23] MEDS: DIVALPROEX SODIUM 500 MG DR TABLET PO SCH ×2 (08:25→20:26)
[2017-06-23] MEDS: AmLODIPine BESYLATE 10 MG TABLET PO SCH (08:25)
[2017-06-23] MEDS: ATENOLOL 50 MG TABLET PO SCH (08:25)
[2017-06-23] MEDS: LORazepam 2 MG TABLET PO PRN ×2 (08:25→17:02)
[2017-06-23] MEDS: VITAMINS A & D 60 GM OINTMENT TP SCH ×2 (08:42→17:04)
[2017-06-23 16:45] VITALS: BP 144/92
[2017-06-23] MEDS: OLANZapine 10 MG TABLET PO SCH (20:26)
[2017-06-23] MEDS: TraZODone HCL 50 MG TABLET PO SCH (20:26)
[2017-06-23] MEDS: OXYBUTYNIN CHLORIDE 5 MG TABLET PO SCH (20:27)
[2017-06-24 06:00] VITALS: BP 130/78
[2017-06-24] MEDS: DIVALPROEX SODIUM 500 MG DR TABLET PO SCH ×2 (08:12→20:04)
[2017-06-24] MEDS: GABAPENTIN 300 MG CAPSULE PO SCH ×2 (08:12→16:18)
[2017-06-24] MEDS: ATENOLOL 50 MG TABLET PO SCH (08:12)
[2017-06-24] MEDS: AmLODIPine BESYLATE 10 MG TABLET PO SCH (08:13)
[2017-06-24] MEDS: VITAMINS A & D 60 GM OINTMENT TP SCH ×2 (08:13→16:18)
[2017-06-24] MEDS: OLANZapine 5 MG TABLET PO SCH (08:13)
[2017-06-24 08:29] VITALS: BP 147/77
[2017-06-24 16:19] VITALS: BP 132/76
[2017-06-24] MEDS: OLANZapine 10 MG TABLET PO SCH (20:04)
[2017-06-24] MEDS: TraZODone HCL 50 MG TABLET PO SCH (20:04)
[2017-06-24] MEDS: OXYBUTYNIN CHLORIDE 5 MG TABLET PO SCH (20:04)
[2017-06-25 03:09] VITALS: BP 122/80
[2017-06-25 08:12] VITALS: BP 136/86
[2017-06-25] MEDS: AmLODIPine BESYLATE 10 MG TABLET PO SCH (08:21)
[2017-06-25] MEDS: ATENOLOL 50 MG TABLET PO SCH (08:21)
[2017-06-25] MEDS: GABAPENTIN 300 MG CAPSULE PO SCH ×2 (08:21→16:38)
[2017-06-25] MEDS: VITAMINS A & D 60 GM OINTMENT TP SCH ×2 (08:22→16:37)
[2017-06-25] MEDS: OLANZapine 5 MG TABLET PO SCH (08:22)
[2017-06-25] MEDS: DIVALPROEX SODIUM 500 MG DR TABLET PO SCH ×2 (08:22→21:04)
[2017-06-25] MEDS: BACITRACIN 28.4 GM OINTMENT TP SCH ×2 (10:15→16:37)
[2017-06-25] MEDS ORDERED: IBUPROFEN 600 MG TABLET PO PRN (10:30)
[2017-06-25] MEDS ORDERED: OLAN10TA20 PO (10:38)
[2017-06-25] MEDS ORDERED: DIVA500T35 PO ×2 (10:38)
[2017-06-25] MEDS ORDERED: OLAN5TAB27 PO (10:38)
[2017-06-25 11:10] VITALS: BP 130/78
[2017-06-25 12:15] VITALS: BP 134/80
[2017-06-25 16:31] VITALS: BP 122/66
[2017-06-25] MEDS: OLANZapine 10 MG TABLET PO SCH (21:04)
[2017-06-25] MEDS: TraZODone HCL 50 MG TABLET PO SCH (21:04)
[2017-06-25] MEDS: OXYBUTYNIN CHLORIDE 5 MG TABLET PO SCH (21:04)
[2017-06-26 01:15] VITALS: BP 110/75
[2017-06-26 08:10] VITALS: BP 127/74
[2017-06-26] MEDS: GABAPENTIN 300 MG CAPSULE PO SCH (08:13)
[2017-06-26] MEDS: DIVALPROEX SODIUM 500 MG DR TABLET PO SCH (08:13)
[2017-06-26] MEDS: OLANZapine 5 MG TABLET PO SCH (08:13)
[2017-06-26] MEDS: AmLODIPine BESYLATE 10 MG TABLET PO SCH (08:13)
[2017-06-26] MEDS: ATENOLOL 50 MG TABLET PO SCH (08:13)
[2017-06-26] MEDS: VITAMINS A & D 60 GM OINTMENT TP SCH (08:14)
[2017-06-26] MEDS: BACITRACIN 28.4 GM OINTMENT TP SCH (08:14)
[2017-06-26] MEDS ORDERED: DIVA500T35 PO (08:54)
== END 2017-06-26 10:48 | disposition home or self-care (01) | DRG 750 ==
LOC: B3A 18:08
DX: F25.0 Schizoaffective disorder, bipolar type (principal); B19.20 Unspecified viral hepatitis C without hepatic coma; Z79.899 Other long term (current) drug therapy
CPT/HCPCS: 80074; 83036; 84439; 84443

== ENCOUNTER 2018-03-28 10:42 | Emergency (ER) | payer MEDICARE, OTHER ==
[~2018-03-28] VITALS: Ht 190.5 cm; Wt 95.5 kg
[~2018-03-28 10:42] MED LIST changes: +DIVA-78 PO; -GABA-531 PO; +OLAN10TA20 PO; +OLAN5TAB2 PO; +OLAN5TAB27 PO; +TRAZ-219 PO
[2018-03-28] MEDS ORDERED: OLAN10TA3 PO (10:51)
[2018-03-28 11:51] LABS: BASOPHILS % (AUTO) 0.4 % (0.0-2.0); EOSINOPHILS % (AUTO) 0 % (1.0-6.0); HEMATOCRIT 37.1 % (41-53); HEMOGLOBIN 12.5 g/dL (13.5-17.5); LYMPHOCYTES % (AUTO) 23.7 % (22.0-44.0); MEAN CORPUSCULAR HEMOGLOBIN 29.7 pg (26.0-34.0); MEAN CORPUSCULAR HGB CONC 33.7 G/dL (31.0-37.0); MEAN CORPUSCULAR VOLUME 88 fL (80-100); MONOCYTES # (AUTO) 0.4 K/uL (0.1-1.0); MONOCYTES % (AUTO) 9.6 % (2.0-9.0); NEUTROPHILS # (AUTO) 2.9 K/uL (1.8-7.7); NEUTROPHILS % (AUTO) 66.3 % (40.0-70.0); PLATELET COUNT (AUTO) 131 K/uL (150-450); RED CELL DISTRIBUTION WIDTH 13.2 % (11.5-14.5)
[2018-03-28 12:01] LABS: ANION GAP 6 mmol/L (8-16); CALCIUM, TOTAL 9.2 mg/dL (8.8-10.5); CARBON DIOXIDE 33 mmol/L (22-29); CHLORIDE 102 mmol/L (98-107); CREATININE 1.03 mg/dL (0.60-1.30); GLOMERULAR FILTR. RATE CALC > 60 mL/min (>60); GLUCOSE,RANDOM 109 mg/dL (70-110); POTASSIUM 3.7 mmol/L (3.5-5.1); SODIUM SERUM 141 mmol/L (136-145); UREA NITROGEN, BLOOD 30 mg/dL (7-18)
[2018-03-28 12:06] LABS: ALANINE AMINOTRANSFERASE 72 U/L (12-78); ALBUMIN 3.4 g/dL (3.4-5.0); ALKALINE PHOSPHATASE 75 U/L (46-116); ASPARTATE AMINOTRANSFERASE 67 U/L (15-37); BILIRUBIN,TOTAL 0.5 mg/dL (0.1-1.0); TOTAL PROTEIN, SERUM 7.1 g/dL (6.4-8.2)
[2018-03-28 12:32] VITALS: BP 131/86
== END 2018-03-28 12:52 | disposition home or self-care (01) ==
LOC: EMS 10:43
DX: L03.115 Cellulitis of right lower limb (principal); I10 Essential (primary) hypertension; F31.9 Bipolar disorder, unspecified; F17.210 Nicotine dependence, cigarettes, uncomplicated; Z79.899 Other long term (current) drug therapy; Z86.19 Personal history of other infectious and parasitic diseases; Z88.5 Allergy status to narcotic agent
CPT/HCPCS: 85379; 93971; 99406

== ENCOUNTER 2018-09-09 12:27 | Emergency (ER) | payer MEDICARE, OTHER ==
[~2018-09-09] VITALS: Ht 195.6 cm; Wt 89.5 kg
[~2018-09-09 12:27] MED LIST changes: -AMLO-512 PO; +AMLO10TA7 PO; -ATEN50TA PO; -OLAN10TA20 PO; -OLAN5TAB2 PO; -TRAZ-219 PO; +TRAZ-252 PO
[2018-09-09] MEDS ORDERED: BACITRACIN 0.9 GM PACKET OINTMENT TP ONE (13:00)
[2018-09-09] MEDS ORDERED: IBUPROFEN 800 MG TABLET PO ONE (13:00)
[2018-09-09] MEDS ORDERED: POVIDONE-IODINE 10% 15 ML SOLUTION UD TP ONE (13:00)
[2018-09-09 15:57] LABS: APPEARANCE,URINE CLEAR (CLEAR); GLUCOSE, URINE (UA) NEGATIVE (NEGATIVE); KETONES,URINE NEGATIVE (NEGATIVE); LEUKOCYTE ESTERASE ,URINE NEGATIVE (NEGATIVE); NITRATE,URINE NEGATIVE (NEGATIVE); OCCULT BLOOD,URINE NEGATIVE (NEGATIVE); PH,URINE 5.5 (5.0-8.0); PROTEIN,URINE TRACE (NEGATIVE)
[2018-09-09 16:04] LABS: AMPHET/METH SCREEN,URINE NEGATIVE (NEGATIVE); BARBITURATE SCREEN, URINE NEGATIVE (NEGATIVE); BENZODIAZEPINES SCREEN,URINE NEGATIVE (NEGATIVE); CANNABINOID SCREEN,URINE POSITIVE (NEGATIVE); COCAINE SCREEN,URINE NEGATIVE (NEGATIVE); METHADONE SCREEN, URINE NEGATIVE (NEGATIVE); OPIATE SCREEN,URINE NEGATIVE (NEGATIVE)
[2018-09-09 16:05] LABS: BILIRUBIN,URINE PRELIM. POSITIVE (NEGATIVE)
[2018-09-09 16:07] LABS: PHENCYCLIDINE SCREEN,URINE NEGATIVE (NEGATIVE)
[2018-09-09 16:20] LABS: BACTERIA,URINE None Seen /HPF (None Seen); RBC,URINE None Seen /HPF (0-2); SQUAMOUS EPITHELIAL CELL,UR Rare /LPF (None Seen)
[2018-09-09 16:42] VITALS: BP 152/106
== END 2018-09-09 16:55 | disposition home or self-care (01) ==
LOC: EMS 12:28
DX: S00.03XA Contusion of scalp, initial encounter (principal); F31.9 Bipolar disorder, unspecified; I10 Essential (primary) hypertension; F17.210 Nicotine dependence, cigarettes, uncomplicated; F12.90 Cannabis use, unspecified, uncomplicated; W01.0XXA Fall on same level from slipping, tripping and stumbling without subsequent striking against object, initial encounter; Y93.89 Activity, other specified; Y92.89 Other specified places as the place of occurrence of the external cause; Y99.8 Other external cause status
CPT/HCPCS: 70450; 99406

== ENCOUNTER 2018-09-25 11:53 | Emergency (ER) | payer MEDICARE, OTHER ==
[~2018-09-25] VITALS: Ht 188 cm; Wt 86.4 kg
[2018-09-25 12:38] LABS: BASOPHILS % (AUTO) 0.8 % (0.0-2.0); EOSINOPHILS % (AUTO) 0 % (1.0-6.0); HEMATOCRIT 33.5 % (41-53); HEMOGLOBIN 11.4 g/dL (13.5-17.5); LYMPHOCYTES # (AUTO) 0.9 K/uL (1.0-4.8); LYMPHOCYTES % (AUTO) 22.3 % (22.0-44.0); MEAN CORPUSCULAR HEMOGLOBIN 29.3 pg (26.0-34.0); MEAN CORPUSCULAR VOLUME 86 fL (80-100); MONOCYTES # (AUTO) 0.4 K/uL (0.1-1.0); MONOCYTES % (AUTO) 9.4 % (2.0-9.0); NEUTROPHILS # (AUTO) 2.7 K/uL (1.8-7.7); NEUTROPHILS % (AUTO) 67.5 % (40.0-70.0); PLATELET COUNT (AUTO) 147 K/uL (150-450); RED BLOOD CELL COUNT(AUTO) 3.88 MIL/uL (4.50-5.90); RED CELL DISTRIBUTION WIDTH 14.7 % (11.5-14.5)
[2018-09-25 12:57] LABS: ALANINE AMINOTRANSFERASE 64 U/L (12-78); ALBUMIN 2.8 g/dL (3.4-5.0); ALKALINE PHOSPHATASE 78 U/L (46-116); ANION GAP 6 mmol/L (8-16); ASPARTATE AMINOTRANSFERASE 65 U/L (15-37); BILIRUBIN,TOTAL 0.5 mg/dL (0.1-1.0); CALCIUM, TOTAL 8.5 mg/dL (8.8-10.5); CARBON DIOXIDE 29 mmol/L (22-29); CHLORIDE 107 mmol/L (98-107); CREATININE 1.01 mg/dL (0.60-1.30); GLOMERULAR FILTR. RATE CALC > 60 mL/min (>60); GLUCOSE,RANDOM 85 mg/dL (70-110); POTASSIUM 3.3 mmol/L (3.5-5.1); SODIUM SERUM 142 mmol/L (136-145); TOTAL PROTEIN, SERUM 6.3 g/dL (6.4-8.2); UREA NITROGEN, BLOOD 30 mg/dL (7-18)
[2018-09-25 13:06] VITALS: BP 131/74
== END 2018-09-25 13:21 | disposition home or self-care (01) ==
LOC: EMS 11:57
DX: F31.9 Bipolar disorder, unspecified (principal); M54.6 Pain in thoracic spine; M25.511 Pain in right shoulder; I10 Essential (primary) hypertension; F12.90 Cannabis use, unspecified, uncomplicated; F17.210 Nicotine dependence, cigarettes, uncomplicated; G62.9 Polyneuropathy, unspecified; Z79.899 Other long term (current) drug therapy; Z88.8 Allergy status to other drugs, medicaments and biological substances; Z88.5 Allergy status to narcotic agent; Z88.6 Allergy status to analgesic agent
CPT/HCPCS: 36415; 80053; 85025; 99284; 99406; G0480

== ENCOUNTER 2018-10-23 00:20 | Emergency (ER) | payer MEDICARE, OTHER ==
[~2018-10-23] VITALS: Ht 195.6 cm; Wt 78.6 kg
[2018-10-23 07:13] LABS: BASOPHILS % (AUTO) 0.6 % (0.0-2.0); EOSINOPHILS % (AUTO) 0.1 % (1.0-6.0); HEMATOCRIT 34.5 % (41-53); HEMOGLOBIN 11.5 g/dL (13.5-17.5); LYMPHOCYTES % (AUTO) 30.5 % (22.0-44.0); MEAN CORPUSCULAR HEMOGLOBIN 28.4 pg (26.0-34.0); MEAN CORPUSCULAR HGB CONC 33.3 G/dL (31.0-37.0); MEAN CORPUSCULAR VOLUME 85 fL (80-100); MONOCYTES # (AUTO) 0.4 K/uL (0.1-1.0); MONOCYTES % (AUTO) 11.8 % (2.0-9.0); PLATELET COUNT (AUTO) 134 K/uL (150-450); RED BLOOD CELL COUNT(AUTO) 4.05 MIL/uL (4.50-5.90); RED CELL DISTRIBUTION WIDTH 14.8 % (11.5-14.5)
[2018-10-23 07:24] LABS: ANION GAP 5 mmol/L (8-16); CALCIUM, TOTAL 8.6 mg/dL (8.8-10.5); CARBON DIOXIDE 30 mmol/L (22-29); CHLORIDE 105 mmol/L (98-107); CREATININE 1.16 mg/dL (0.60-1.30); GLOMERULAR FILTR. RATE CALC > 60 mL/min (>60); GLUCOSE,RANDOM 89 mg/dL (70-110); POTASSIUM 3.3 mmol/L (3.5-5.1); SODIUM SERUM 140 mmol/L (136-145); UREA NITROGEN, BLOOD 31 mg/dL (7-18)
[2018-10-23 07:30] LABS: ALANINE AMINOTRANSFERASE 87 U/L (12-78); ALBUMIN 3.1 g/dL (3.4-5.0); ALKALINE PHOSPHATASE 77 U/L (46-116); ASPARTATE AMINOTRANSFERASE 125 U/L (15-37); BILIRUBIN,TOTAL 0.5 mg/dL (0.1-1.0); TOTAL PROTEIN, SERUM 6.5 g/dL (6.4-8.2)
[2018-10-23] MEDS ORDERED: POTASSIUM CHLORIDE 10% 40 MEQ/30 ML LIQUID UDCUP PO ONE (09:00)
[2018-10-23 11:43] VITALS: BP 151/76
== END 2018-10-23 11:46 | disposition home or self-care (01) ==
LOC: EMS 00:20
DX: S00.83XA Contusion of other part of head, initial encounter (principal); F41.9 Anxiety disorder, unspecified; F25.9 Schizoaffective disorder, unspecified; R79.89 Other specified abnormal findings of blood chemistry; B19.20 Unspecified viral hepatitis C without hepatic coma; I10 Essential (primary) hypertension; G62.9 Polyneuropathy, unspecified; F31.9 Bipolar disorder, unspecified; F12.90 Cannabis use, unspecified, uncomplicated; F17.210 Nicotine dependence, cigarettes, uncomplicated; Z88.5 Allergy status to narcotic agent; Z88.6 Allergy status to analgesic agent; Z88.8 Allergy status to other drugs, medicaments and biological substances; Z79.899 Other long term (current) drug therapy; Z98.890 Other specified postprocedural states; Z59.0 Homelessness; X58.XXXA Exposure to other specified factors, initial encounter; Y93.89 Activity, other specified; Y92.89 Other specified places as the place of occurrence of the external cause; Y99.8 Other external cause status
CPT/HCPCS: 36415; 70450; 80053; 85025; 99284; 99406; G0480

== ENCOUNTER 2018-12-06 11:28 | Emergency (ER) | payer MEDICARE, OTHER ==
[~2018-12-06] VITALS: Ht 190.5 cm; Wt 78.6 kg
[2018-12-06 13:50] LABS: BASOPHILS % (AUTO) 0.8 % (0.0-2.0); EOSINOPHILS % (AUTO) 0.1 % (1.0-6.0); HEMOGLOBIN 11.2 g/dL (13.5-17.5); LYMPHOCYTES # (AUTO) 0.9 K/uL (1.0-4.8); LYMPHOCYTES % (AUTO) 25.5 % (22.0-44.0); MEAN CORPUSCULAR HEMOGLOBIN 28.3 pg (26.0-34.0); MEAN CORPUSCULAR HGB CONC 32.8 G/dL (31.0-37.0); MEAN CORPUSCULAR VOLUME 86 fL (80-100); MONOCYTES # (AUTO) 0.3 K/uL (0.1-1.0); NEUTROPHILS # (AUTO) 2.4 K/uL (1.8-7.7); NEUTROPHILS % (AUTO) 64.6 % (40.0-70.0); PLATELET COUNT (AUTO) 190 K/uL (150-450); RED BLOOD CELL COUNT(AUTO) 3.95 MIL/uL (4.50-5.90); RED CELL DISTRIBUTION WIDTH 16.6 % (11.5-14.5)
[2018-12-06 13:52] LABS: APPEARANCE,URINE CLEAR (CLEAR); BILIRUBIN,URINE NEGATIVE (NEGATIVE); GLUCOSE, URINE (UA) NEGATIVE (NEGATIVE); KETONES,URINE NEGATIVE (NEGATIVE); LEUKOCYTE ESTERASE ,URINE NEGATIVE (NEGATIVE); NITRATE,URINE NEGATIVE (NEGATIVE); OCCULT BLOOD,URINE NEGATIVE (NEGATIVE); PROTEIN,URINE NEGATIVE (NEGATIVE)
[2018-12-06 14:17] LABS: AMPHET/METH SCREEN,URINE NEGATIVE (NEGATIVE); BARBITURATE SCREEN, URINE NEGATIVE (NEGATIVE); BENZODIAZEPINES SCREEN,URINE NEGATIVE (NEGATIVE); CANNABINOID SCREEN,URINE NEGATIVE (NEGATIVE); COCAINE SCREEN,URINE NEGATIVE (NEGATIVE); METHADONE SCREEN, URINE NEGATIVE (NEGATIVE); OPIATE SCREEN,URINE NEGATIVE (NEGATIVE); PHENCYCLIDINE SCREEN,URINE NEGATIVE (NEGATIVE)
[2018-12-06 14:41] LABS: ALANINE AMINOTRANSFERASE 53 U/L (12-78); ALKALINE PHOSPHATASE 91 U/L (46-116); ANION GAP 7 mmol/L (8-16); ASPARTATE AMINOTRANSFERASE 54 U/L (15-37); BILIRUBIN,TOTAL 0.6 mg/dL (0.1-1.0); CARBON DIOXIDE 31 mmol/L (22-29); CHLORIDE 103 mmol/L (98-107); CREATININE 1.05 mg/dL (0.60-1.30); GLOMERULAR FILTR. RATE CALC > 60 mL/min (>60); GLUCOSE,RANDOM 86 mg/dL (70-110); POTASSIUM 3.3 mmol/L (3.5-5.1); SODIUM SERUM 141 mmol/L (136-145); TOTAL PROTEIN, SERUM 7.2 g/dL (6.4-8.2)
[2018-12-06 14:42] LABS: VALPROIC ACID < 3 mcg/mL (50-100)
[2018-12-06 15:30] VITALS: BP 138/80
[2018-12-06] MEDS ORDERED: POTASSIUM CHLORIDE 20 MEQ ER TABLET PO ONE (15:30)
[2018-12-06 15:40] LABS: ALBUMIN 3.2 g/dL (3.4-5.0); UREA NITROGEN, BLOOD 26 mg/dL (7-18)
== END 2018-12-06 18:04 | disposition home or self-care (01) ==
LOC: EMS 11:31
DX: F25.0 Schizoaffective disorder, bipolar type (principal); G89.29 Other chronic pain; F17.210 Nicotine dependence, cigarettes, uncomplicated; I10 Essential (primary) hypertension; G62.9 Polyneuropathy, unspecified; F12.90 Cannabis use, unspecified, uncomplicated; Z79.899 Other long term (current) drug therapy; Z88.5 Allergy status to narcotic agent; Z88.6 Allergy status to analgesic agent; Z88.8 Allergy status to other drugs, medicaments and biological substances
CPT/HCPCS: 36415; 80053; 80164; 80307; 81003; 85025; 99284; 99406; G0480

== ENCOUNTER 2019-04-09 12:11 | Inpatient (IN) | payer MEDICARE, OTHER ==
[~2019-04-09] VITALS: Ht 195.6 cm; Wt 92.4 kg
[2019-04-09] MEDS ORDERED: DIVA250T45 PO (12:35)
[2019-04-09] MEDS ORDERED: AMLO5TAB9 PO (12:35)
[2019-04-09] MEDS ORDERED: OLAN5TAB2 PO ×2 (12:35)
[2019-04-09] MEDS ORDERED: LISI-662 PO (12:35)
[2019-04-09] MEDS ORDERED: OLAN7.5T2 PO (12:35)
[2019-04-09] MEDS ORDERED: GABA-531 PO (12:35)
[2019-04-09] MEDS ORDERED: SODIUM CHLORIDE 0.9% 1,000 ML IV ONE (13:30)
[2019-04-09 14:29] LABS: BASOPHILS % (AUTO) 0.5 % (0.0-2.0); EOSINOPHILS % (AUTO) 0 % (1.0-6.0); HEMATOCRIT 39.4 % (41-53); HEMOGLOBIN 13.5 g/dL (13.5-17.5); LYMPHOCYTES # (AUTO) 0.6 K/uL (1.0-4.8); LYMPHOCYTES % (AUTO) 16.5 % (22.0-44.0); MEAN CORPUSCULAR HEMOGLOBIN 28.6 pg (26.0-34.0); MEAN CORPUSCULAR HGB CONC 34.3 G/dL (31.0-37.0); MEAN CORPUSCULAR VOLUME 83 fL (80-100); MONOCYTES # (AUTO) 0.6 K/uL (0.1-1.0); MONOCYTES % (AUTO) 17.5 % (2.0-9.0); NEUTROPHILS # (AUTO) 2.4 K/uL (1.8-7.7); NEUTROPHILS % (AUTO) 65.5 % (40.0-70.0); PLATELET COUNT (AUTO) 116 K/uL (150-450); RED BLOOD CELL COUNT(AUTO) 4.72 MIL/uL (4.50-5.90); RED CELL DISTRIBUTION WIDTH 15.5 % (11.5-14.5)
[2019-04-09 14:33] LABS: CALCIUM, TOTAL 9.3 mg/dL (8.8-10.5); CREATININE 1.66 mg/dL (0.60-1.30); POTASSIUM 4.3 mmol/L (3.5-5.1)
[2019-04-09 14:38] LABS: ALBUMIN 3.7 g/dL (3.4-5.0); BILIRUBIN,TOTAL 0.6 mg/dL (0.1-1.0); TOTAL PROTEIN, SERUM 7.4 g/dL (6.4-8.2)
[2019-04-09] MEDS ORDERED: DIVA500T52 PO (16:09)
[2019-04-09] MEDS ORDERED: ACETAMINOPHEN 325 MG TABLET PO PRN (16:15)
[2019-04-09] MEDS ORDERED: ONDANSETRON HCL 4 MG/2 ML VIAL IVP PRN (16:15)
[2019-04-09 18:32] VITALS: BP 110/70
[2019-04-09 20:00] VITALS: BP 116/72
[2019-04-09 20:15] VITALS: BP 116/72
[2019-04-10 00:05] VITALS: BP 119/79
[2019-04-10 00:23] VITALS: BP 119/79
[2019-04-10] MEDS ORDERED: ALBUTEROL SULFATE 2.5 MG/0.5 ML NEB SOLUTION NEB PRN (00:30)
[2019-04-10] MEDS ORDERED: BISACODYL 10 MG RECTAL RECTAL SUPPOSITORY PR PRN (00:30)
[2019-04-10] MEDS ORDERED: MAGNESIUM HYDROXIDE SUSPENSION 30 ML UDCUP PO PRN (00:30)
[2019-04-10] MEDS ORDERED: IPRATROPIUM BROMIDE 0.5 MG/2.5 ML NEB SOLUTION NEB PRN (00:30)
[2019-04-10] MEDS ORDERED: ZOLPIDEM TARTRATE 5 MG TABLET PO PRN (00:30)
[2019-04-10] MEDS ORDERED: ONDANSETRON HCL 4 MG/2 ML VIAL IVP PRN (00:30)
[2019-04-10] MEDS ORDERED: ACETAMINOPHEN 325 MG TABLET PO PRN (00:30)
[2019-04-10] MEDS: DIVALPROEX SODIUM 500 MG ER TABLET PO SCH ×3 (00:55→20:17)
[2019-04-10 04:20] VITALS: BP 134/79
[2019-04-10 07:55] VITALS: BP 122/93
[2019-04-10] MEDS: HEPARIN SODIUM,PORCINE 5,000 UNITS/ML VIAL SQ SCH ×3 (08:00→23:19)
[2019-04-10] MEDS: DOCUSATE SODIUM 100 MG CAPSULE PO SCH ×2 (08:26→20:18)
[2019-04-10] MEDS: GABAPENTIN 300 MG CAPSULE PO SCH ×2 (08:26→20:17)
[2019-04-10] MEDS: OLANZapine 5 MG TABLET PO SCH (08:32)
[2019-04-10 11:13] VITALS: BP 129/85
[2019-04-10] MEDS ORDERED: SODIUM CHLORIDE 0.9% 1,000 ML IV ONE (11:30)
[2019-04-10 19:20] VITALS: BP 154/78
[2019-04-10] MEDS ORDERED: TraZODone HCL 50 MG TABLET PO SCH (21:00)
[2019-04-10] MEDS ORDERED: OLANZapine 7.5 MG TABLET PO SCH (21:00)
[2019-04-11] VITALS: BP 129/77
[2019-04-11 03:37] VITALS: BP 130/71
[2019-04-11 07:14] VITALS: BP 123/70
[2019-04-11 07:52] LABS: ALANINE AMINOTRANSFERASE 98 U/L (12-78); ALBUMIN 2.9 g/dL (3.4-5.0); ALKALINE PHOSPHATASE 111 U/L (46-116); ANION GAP 7 mmol/L (8-16); ASPARTATE AMINOTRANSFERASE 50 U/L (15-37); BILIRUBIN,TOTAL 0.3 mg/dL (0.1-1.0); CALCIUM, TOTAL 8.2 mg/dL (8.8-10.5); CARBON DIOXIDE 25 mmol/L (22-29); CHLORIDE 109 mmol/L (98-107); CREATININE 0.94 mg/dL (0.60-1.30); GLOMERULAR FILTR. RATE CALC > 60 mL/min (>60); GLUCOSE,RANDOM 107 mg/dL (70-110); POTASSIUM 4.1 mmol/L (3.5-5.1); SODIUM SERUM 141 mmol/L (136-145); TOTAL PROTEIN, SERUM 6.3 g/dL (6.4-8.2); UREA NITROGEN, BLOOD 22 mg/dL (7-18)
[2019-04-11] MEDS: HEPARIN SODIUM,PORCINE 5,000 UNITS/ML VIAL SQ SCH (08:00)
[2019-04-11] MEDS: GABAPENTIN 300 MG CAPSULE PO SCH (08:26)
[2019-04-11] MEDS: DOCUSATE SODIUM 100 MG CAPSULE PO SCH (08:26)
[2019-04-11] MEDS: DIVALPROEX SODIUM 500 MG ER TABLET PO SCH (08:27)
[2019-04-11] MEDS: OLANZapine 5 MG TABLET PO SCH (08:27)
[2019-04-11 10:59] VITALS: BP 120/67
== END 2019-04-11 14:35 | disposition home or self-care (01) | DRG 312 ==
LOC: EMS 12:11 → 5N 17:17
PROVIDERS: ADMIT Hospitalist; ATTEND Hospitalist
DX: I95.1 Orthostatic hypotension (principal); N17.9 Acute kidney failure, unspecified; E86.0 Dehydration; J44.9 Chronic obstructive pulmonary disease, unspecified; B19.20 Unspecified viral hepatitis C without hepatic coma; F17.210 Nicotine dependence, cigarettes, uncomplicated; F20.9 Schizophrenia, unspecified; F31.9 Bipolar disorder, unspecified; I10 Essential (primary) hypertension; F12.90 Cannabis use, unspecified, uncomplicated; T50.995A Adverse effect of other drugs, medicaments and biological substances, initial encounter; G62.9 Polyneuropathy, unspecified; Z88.6 Allergy status to analgesic agent; Z88.8 Allergy status to other drugs, medicaments and biological substances; Z79.899 Other long term (current) drug therapy; Y92.89 Other specified places as the place of occurrence of the external cause
CPT/HCPCS: 93005; J1644; J7030

== ENCOUNTER 2021-12-05 12:22 | Emergency (ER) | payer MEDICARE, MEDICAID ==
[~2021-12-05] VITALS: Ht 188 cm; Wt 120.0 kg
[~2021-12-05 12:22] MED LIST changes: -AMLO10TA7 PO; -DIVA-78 PO; +GABA-1181 PO; -OLAN10TA3 PO; -OLAN5TAB27 PO; +OLAN5TAB52 PO; +OLAN7.5T22 PO; -OXYB5 PO
[2021-12-05] MEDS ORDERED: AMLO-258 PO (12:28)
[2021-12-05] MEDS ORDERED: METO50 PO (12:28)
[2021-12-05] MEDS ORDERED: SODIUM CHLORIDE 0.9% 1,000 ML IV ONE ×3 (13:00→15:30)
[2021-12-05] MEDS ORDERED: KETOROLAC TROMETHAMINE 30 MG/ML VIAL IVP ONE (13:00)
[2021-12-05 13:21] LABS: BASOPHILS % (AUTO) 0.2 % (0.0-2.0); EOSINOPHILS % (AUTO) 0 % (1.0-6.0); HEMATOCRIT 40.8 % (41-53); HEMOGLOBIN 13.5 g/dL (13.5-17.5); LYMPHOCYTES # (AUTO) 0.8 K/uL (1.0-4.8); LYMPHOCYTES % (AUTO) 6.6 % (22.0-44.0); MEAN CORPUSCULAR HEMOGLOBIN 28.6 pg (26.0-34.0); MEAN CORPUSCULAR HGB CONC 33.1 G/dL (31.0-37.0); MEAN CORPUSCULAR VOLUME 86 fL (80-100); MONOCYTES # (AUTO) 1.4 K/uL (0.1-1.0); MONOCYTES % (AUTO) 11.5 % (2.0-9.0); NEUTROPHILS # (AUTO) 10.2 K/uL (1.8-7.7); NEUTROPHILS % (AUTO) 81.7 % (40.0-70.0); PLATELET COUNT (AUTO) 148 K/uL (150-450); RED BLOOD CELL COUNT(AUTO) 4.73 MIL/uL (4.50-5.90); RED CELL DISTRIBUTION WIDTH 15.2 % (11.5-14.5)
[2021-12-05 13:40] LABS: CALCIUM, TOTAL 8.6 mg/dL (8.8-10.5); CREATININE 1.38 mg/dL (0.60-1.30); POTASSIUM 3.7 mmol/L (3.5-5.1)
[2021-12-05 13:44] LABS: TOTAL PROTEIN, SERUM 6.3 g/dL (6.4-8.2)
[2021-12-05 15:49] VITALS: BP 143/89
== END 2021-12-05 16:41 | disposition home or self-care (01) ==
LOC: EMS 12:27
DX: R10.9 Unspecified abdominal pain (principal); F31.9 Bipolar disorder, unspecified; I10 Essential (primary) hypertension; F20.9 Schizophrenia, unspecified; G62.9 Polyneuropathy, unspecified; F17.210 Nicotine dependence, cigarettes, uncomplicated; F12.90 Cannabis use, unspecified, uncomplicated; Z87.19 Personal history of other diseases of the digestive system; Z87.448 Personal history of other diseases of urinary system; Z98.890 Other specified postprocedural states; Z88.8 Allergy status to other drugs, medicaments and biological substances; Z88.5 Allergy status to narcotic agent
CPT/HCPCS: 99284; 74176; 96374; 96361; 80053; 81002; 85025; 36415; J1885; J7030

== ENCOUNTER 2021-12-09 10:20 | Emergency (ER) | payer MEDICARE, MEDICAID ==
[~2021-12-09] VITALS: Ht 188 cm; Wt 100.0 kg
[~2021-12-09 10:20] MED LIST changes: +AMLO-258 PO; +METO50 PO
[2021-12-09 11:11] LABS: BASOPHILS % (AUTO) 0.6 % (0.0-2.0); EOSINOPHILS % (AUTO) 0.1 % (1.0-6.0); HEMATOCRIT 36.9 % (41-53); HEMOGLOBIN 12.5 g/dL (13.5-17.5); LYMPHOCYTES # (AUTO) 0.8 K/uL (1.0-4.8); LYMPHOCYTES % (AUTO) 12.8 % (22.0-44.0); MEAN CORPUSCULAR HGB CONC 33.9 G/dL (31.0-37.0); MEAN CORPUSCULAR VOLUME 86 fL (80-100); MONOCYTES # (AUTO) 0.7 K/uL (0.1-1.0); MONOCYTES % (AUTO) 10.4 % (2.0-9.0); NEUTROPHILS # (AUTO) 4.9 K/uL (1.8-7.7); NEUTROPHILS % (AUTO) 76.1 % (40.0-70.0); PLATELET COUNT (AUTO) 180 K/uL (150-450); RED BLOOD CELL COUNT(AUTO) 4.32 MIL/uL (4.50-5.90); RED CELL DISTRIBUTION WIDTH 14.8 % (11.5-14.5)
[2021-12-09 11:37] LABS: CALCIUM, TOTAL 8.8 mg/dL (8.8-10.5); CREATININE 1.29 mg/dL (0.60-1.30); POTASSIUM 3.3 mmol/L (3.5-5.1)
[2021-12-09 11:40] LABS: ALBUMIN 2.7 g/dL (3.4-5.0); BILIRUBIN,TOTAL 0.6 mg/dL (0.1-1.0); TOTAL PROTEIN, SERUM 6.4 g/dL (6.4-8.2)
[2021-12-09 13:20] VITALS: BP 120/87
== END 2021-12-09 13:41 | disposition home or self-care (01) ==
LOC: EMS 10:38
DX: R10.30 Lower abdominal pain, unspecified (principal); K59.00 Constipation, unspecified; F20.9 Schizophrenia, unspecified; F31.9 Bipolar disorder, unspecified; F10.20 Alcohol dependence, uncomplicated; F12.90 Cannabis use, unspecified, uncomplicated; F17.210 Nicotine dependence, cigarettes, uncomplicated; G62.9 Polyneuropathy, unspecified; I10 Essential (primary) hypertension; Z88.6 Allergy status to analgesic agent
CPT/HCPCS: 74176; 80053; 83690; 85025; 99284